=== PATIENT | male | born 1940 | race Caucasian/White ===

== ENCOUNTER 2018-02-08 10:19 | Outpatient (CLI) | payer MEDICARE ==
--- NOTE | 2018-02-08 13:17 | MRI ---
MRI LUMBAR SPINE WITHOUT CONTRAST: INDICATIONS: Lumbar radiculopathy. COMPARISON: 06/13/2017 TECHNIQUE: Multiplanar, multisequence MR images were obtained of the lumbar spine without IV contrast. FINDINGS: There is stable severe bilateral facet osteoarthrosis, right greater than left, at L5-S1. There is a stable small central protrusion at L5-S1. Facet hypertrophy and broad-based bulge at L5-S1 induces mild bilateral neural foraminal narrowing, which is stable. At the L4-L5 level, there is a broad-based bulge with facet hypertrophy inducing moderate to severe c entral canal narrowing with moderate bilateral neural foraminal narrowing. This is stable to the shala or exam. At L3-L4, there is a broad-based bulge with facet hypertrophy and ligamentum flavum hypertrophy, haley cing severe central canal narrowing with moderate to severe bilateral neural foraminal narrowing. Th is is stable to the prior exam. At L2-L3, there is a broad-based bulge with facet hypertrophy inducing moderate central canal narrowi ng with moderate to severe bilateral neural foraminal narrowing. This is stable to the prior exam. At L1-L2, there is a mild broad-based bulge without appreciable central canal or neural foraminal tiffanie rowing. 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 POS: SIDNEY
== END 2018-02-08 10:20 | disposition home or self-care (01) ==
LOC: TBSIIMAG 10:19
PROVIDERS: ATTEND Neurological Surgery
DX: M47.26 Other spondylosis with radiculopathy, lumbar region (principal); M99.83 Other biomechanical lesions of lumbar region
CPT/HCPCS: 72148

== ENCOUNTER 2018-02-19 08:21 | Observation (INO) | payer MEDICARE ==
[2018-02-16 14:07] VITALS: BMI 29.2
[2018-02-19 09:19] LABS: Hemoglobin 14.9 g/dL (14.0-18.0); Mean Corpuscular Hemoglobin 31.4 pg (27.0-31.0); Mean Corpuscular Volume 95.1 fl (80.0-94.0); Mean Platelet Volume 7.5 fL (7.4-10.4); Platelet Count 137 thou/uL (130-400); RBC Distribution Width 12.7 % (11.5-14.5); Red Blood Cell (RBC) Count 4.76 mill/uL (4.70-6.10); White Blood Cell (WBC) Count 6.4 thou/uL (4.8-10.8)
[2018-02-19 09:37] LABS: Anion Gap 11 mmol/L (10-20); BUN (Urea Nitrogen) 23 mg/dL (8.4-25.7); Calc. Creatinine Clearance 68 mL/min (70-130); Calcium 9.7 mg/dL (7.8-10.44); Carbon Dioxide 23 mmol/L (23-31); Chloride 107 mmol/L (98-107); Estimated GFR-MDRD 55; Glucose 104 mg/dL (83-110); Potassium 4.2 mmol/L (3.5-5.1); Sodium 137 mmol/L (136-145)
[2018-02-19] MEDS ORDERED: Sodium Chloride 0.9% 10 ML ONE (11:37)
[2018-02-19] MEDS ORDERED: CEFAZOLIN/Water 2 GM/20 ML SYRINGE ONE (11:43)
[2018-02-19] MEDS ORDERED: Rocuronium Bromide 50 MG/5 ML VIAL ONE (12:36)
[2018-02-19] MEDS ORDERED: Fentanyl 100 MCG/2 ML VIAL ONE (12:40)
--- NOTE | 2018-02-19 13:19 | OP ---
DATE OF PROCEDURE: 02/19/2018 SURGEON: Semaj Dupont M.D. SWITCHBOARD RECEPTIONIST: Chaparrita Merrill PROCEDURE: L2 through L4 laminectomy. PROCEDURE IN DETAIL: The patient was brought to the operating room and intubated. He was rolled in the prone position on gel-filled chest rolls. Incision made exposing L2 through L4 and our level was confirmed by x-ray. We performed complete L4, complete L3 and inferior L2 laminectomies, completely decompressing the neural elements centrally at these levels. The wound was then extensively irrigat ed, immaculate hemostasis was secured. Vancomycin powder was applied and the wound was closed in carmen tomic layers over a drain.
[2018-02-19] MEDS ORDERED: Ondansetron HCl/PF 4 MG/2 ML Vial IVP PRN (13:51)
[2018-02-19] MEDS ORDERED: Promethazine HCl 25 MG/ML VIAL IM PRN ×2 (13:51→15:37)
[2018-02-19] MEDS ORDERED: Promethazine HCl 25 MG/ML VIAL SLOW IVP PRN (13:51)
[2018-02-19] MEDS ORDERED: Albuterol Sulfate HFA (OR ONLY) INH PRN (15:33)
[2018-02-19] MEDS ORDERED: Promethazine 25 MG TAB PO PRN (15:37)
[2018-02-19] MEDS ORDERED: Ondansetron HCl/PF 4 MG/2 ML Vial IM PRN (15:37)
[2018-02-19] MEDS ORDERED: Milk Of Magnesia 30 ML UDCUP PO PRN (15:37)
[2018-02-19] MEDS ORDERED: diphenhydrAMINE 50 MG/ML VIAL IVP PRN (15:37)
[2018-02-19] MEDS ORDERED: traMADol HCl 50 MG TAB PO PRN ×2 (15:37)
[2018-02-19] MEDS ORDERED: Mag-Al 1200 mg/1200 mg/30 ML UDCUP PO PRN (15:37)
[2018-02-19] MEDS ORDERED: Promethazine HCl 12.5 MG SUPP PR PRN (15:37)
[2018-02-19] MEDS ORDERED: HYDROcodone/Acetaminophen 10/325 mg Tablet PO PRN ×2 (15:37)
[2018-02-19] MEDS ORDERED: tiZANidine HCl 4 MG TAB PO PRN (15:37)
[2018-02-19] MEDS ORDERED: diphenhydrAMINE 25 MG CAP PO PRN (15:37)
[2018-02-19] MEDS ORDERED: Morphine 5 MG/ML SYRINGE SLOW IVP PRN ×2 (15:41)
[2018-02-19] MEDS: Sodium Chloride 0.9% 1,000 ML IV SCH (15:49)
[2018-02-19] MEDS ORDERED: Ondansetron HCl/PF 4 MG/2 ML Vial ONE (16:10)
[2018-02-19] MEDS ORDERED: Glycopyrrolate 0.2 MG/ML 5 ML SYRINGE ONE ×2 (16:10)
[2018-02-19] MEDS ORDERED: Dexamethasone 20 MG/5 ML VIAL ONE (16:10)
[2018-02-19] MEDS ORDERED: PROPOFOL 200 MG/20 ML VIAL ONE (16:10)
[2018-02-19] MEDS ORDERED: ePHEDrine/0.9% NaCl/PF SYRINGE 50 mg/10 ml ONE (16:10)
[2018-02-19] MEDS ORDERED: Lidocaine 1% PF 5 ML VIAL ONE (16:10)
[2018-02-19] MEDS: CEFAZOLIN/Water 2 GM/20 ML SYRINGE SLOW IVP SCH (20:11)
[2018-02-19] MEDS ORDERED: Mirtazapine 30 MG TAB PO SCH (21:00)
[2018-02-20] MEDS: CEFAZOLIN/Water 2 GM/20 ML SYRINGE SLOW IVP SCH (04:54)
[2018-02-20] MEDS: Sodium Chloride 0.9% 1,000 ML IV SCH (07:24)
[2018-02-20] MEDS ORDERED: Escitalopram Oxalate 10 mg Tablet PO SCH (09:00)
[2018-02-20] MEDS ORDERED: Finasteride 5 MG TAB PO SCH (09:00)
[2018-02-20] MEDS ORDERED: Multivit, Therapeutic 1 TAB PO SCH (09:00)
[2018-02-20] MEDS ORDERED: Fish Oil 1,000 MG CAP PO SCH (09:00)
[2018-02-20 11:28] VITALS: BP 169/87; TEMP 98.1
--- NOTE | 2018-02-20 13:25 | DIS ---
ATTENDING PHYSICIAN: Dr. Semaj Dupont DATE OF ADMISSION: 02/19/2018 DATE OF DISCHARGE: 02/20/2018 DISCHARGE SUMMARY: The patient is a 77-year-old male recently seen in our office for progr essive low back and leg pain who was found to have significant lumbar stenosis at L2-L4 and underwent L2-L4 laminectomy on 02/19/2018. Intraoperatively OSMAR drain was placed and the patient was admitted to the floor for observation. He reports his postoperative pain is well controlled with p.o. medicat ions. He has been up ambulating throughout the department without any difficulty. He does have some persistent left hip discomfort which we will continue to monitor. He has no leg weakness, numbness or tingling. Initially postoperatively, he had some feeling as if he was unable to completely empty his bladder. However, he has been a finasteride and he reports that this is improving with time. T his is likely related to Anesthesia. The patient is otherwise doing well. He is tolerating regular diet. His OSMAR drain put out 100 mL overnight, but this is trending downward. The patient was seen by Dr. Dupont this morning who felt that the OSMAR drain could be discontinued, removed and patient coul d be discharged to home. I have discussed patient home care precautions, followup and we have schedu led followup appointment in 2 weeks with our office. He has been provided with a prescription for hy drocodone as well as Zanaflex. Please reach out to Neurosurgery for additional questions or concerns .
--- NOTE | 2018-02-25 08:37 | EKG ---
Test Reason : PREOP Blood Pressure : / mmHG Vent. Rate : 065 BPM Atrial Rate : 065 BPM P-R Int : 220 ms QRS Dur : 084 ms QT Int : 408 ms P-R-T Axes : 035 026 046 degrees QTc Int : 424 ms Sinus rhythm with sinus arrhythmia with 1st degree A-V block Otherwise normal ECG No previous ECGs available Confirmed by ANIA JAIME MD ([id number]) on 02/25/2018 8:36:53 AM Referred By: MORIS Confirmed By:ANIA JAIME MD
== END 2018-02-20 15:45 | disposition home or self-care (01) ==
LOC: SDC 08:21 → 3SE 15:13
PROVIDERS: ADMIT Neurological Surgery; ATTEND Neurological Surgery
PROC: 01NB0ZZ Release Lumbar Nerve, Open Approach (ICD-10-PCS; principal; 2018-02-19)
DX: M48.061 Spinal stenosis, lumbar region without neurogenic claudication (principal); M43.16 Spondylolisthesis, lumbar region; F32.9 Major depressive disorder, single episode, unspecified; F41.9 Anxiety disorder, unspecified; G47.00 Insomnia, unspecified; G47.30 Sleep apnea, unspecified; N40.0 Benign prostatic hyperplasia without lower urinary tract symptoms; Z87.891 Personal history of nicotine dependence; Z79.899 Other long term (current) drug therapy; Z99.89 Dependence on other enabling machines and devices
CPT/HCPCS: 63047; 63048 ×2; 76001; 80048; 85027; 93005; 96361; 96374; 96376; G0378; 93010; A4216; J1100; J2001; J2405; J2704; J3010; J3370; J3490

== ENCOUNTER 2019-02-07 13:26 | Outpatient (CLI) | payer MEDICARE ==
[2019-02-07] MEDS ORDERED: Gadobenate Dimeglumine 529 MG/1 ML (20ML VIAL) ONE (15:02)
--- NOTE | 2019-02-07 15:31 | MRI ---
FMR of the lumbar spine with and without IV contrast INDICATION: History of prior surgery left leg numbness ongoing for 3 weeks COMPARISON: Prior MRI lumbar spine dated February 08, 2018 Contrast: 20 cc of MultiHance FINDINGS: The bone marrow signal intensity appears within normal limits. There is slight retrolisthesis of L2 o n L3 which is stable. There is posterior decompression at the L2-3, L3-4 and L4-5 levels. The visualized retroperitoneum and paravertebral soft tissues appear within normal limits. At L5-S1, there is severe right and moderate left facet joint degenerative change. There is a broad-b ased disc bulge and loss of disc space height introducing stable mild bilateral neural foraminal narr owing. At L4-5, there is a broad-based bulge and facet hypertrophy inducing cysts some mild central canal na rrowing which is stable to the prior exam. The loss of disc space height images in addition to the fa cet hypertrophy and disc bulge at this level induces mild bilateral neural foraminal narrowing which is stable. At L3-4, there is improvement in the central canal narrowing. There is a residual broad-based disc bu lge and facet hypertrophy inducing mild central canal narrowing. The broad-based bulge and facet hype rtrophy induces stable moderate to severe bilateral neural foraminal narrowing. At L2-3, there is a broad-based bulge with a superimposed facet hypertrophy and prominent synovial cy sts inducing mild central canal narrowing. This is improved from prior examination. The synovial cyst s have slightly grown in size from the comparison examination where the one on the left measures 8 mm and the synovial cyst protruding into the central canal on the right measures 8.8 mm. There is moder ate to severe bilateral neural foraminal narrowing which is stable. At L1-2, there is mild facet joint degenerative change and broad-based bulge do see mild bilateral ne ural foraminal narrowing which is stable. At T12-L1, there is no critical central canal or neural foraminal narrowing. No abnormal soft tissue enhancement is demonstrated. There is enhancement of the extradural postopera tive scar near the decompression sites. IMPRESSION: 1. Interval posterior decompression at L2-3 through L4-5 with improvement in the degree of central ca nal narrowing. There is been interval development of slightly prominent anteromedially projecting syn ovial cysts off the L2-3 facet complexes that introduces some mild central canal narrowing at this le robbie. 2. The multilevel neural foraminal narrowing of L2-3 through L5-S1 is largely stable.
== END 2019-02-07 13:27 | disposition home or self-care (01) ==
LOC: TBSIIMAG 13:26
PROVIDERS: ATTEND Neurological Surgery
DX: M54.5 Low back pain (principal); M48.061 Spinal stenosis, lumbar region without neurogenic claudication; M48.07 Spinal stenosis, lumbosacral region; M71.38 Other bursal cyst, other site
CPT/HCPCS: 72158; 82565